=== PATIENT | male | born 1965 | race African-American/Black ===

== ENCOUNTER 2020-01-14 12:35 | Emergency (ER) | payer SELFPAY ==
[~2020-01-14] VITALS: Ht 175.3 cm; Wt 82.0 kg
[2020-01-14] MEDS ORDERED: HALOPERIDOL LACTATE 5MG/ML VIAL IM ONE (13:15)
[2020-01-14] MEDS ORDERED: LORAZEPAM 2MG/ML CPJ IM ONE (13:15)
[2020-01-14] MEDS ORDERED: DIPHENHYDRAMINE 50MG/ML VIAL IM ONE (13:15)
[2020-01-14] MEDS ORDERED: LIDOCAINE 1%/EPI 1:100,000 10 ML VIAL IJ ONE (14:15)
[2020-01-14] MEDS ORDERED: LIDOCAINE HCL/PF 1% 10 MG/ML 5ML VIAL IJ ONE (14:15)
[2020-01-14] MEDS ORDERED: LORAZEPAM 2MG/ML CPJ IV ONE (14:15)
[2020-01-14] MEDS ORDERED: TETANUS, DIPHTHERIA, PERTUSSIS VAC/PF 0.5ML (>7YR OLD) IM ONE (14:15)
[2020-01-14] MEDS ORDERED: KETOROLAC 30MG/ML VIAL IV ONE (14:15)
[2020-01-14] MEDS ORDERED: BACITRACIN ZINC OINT UDPKT TOP ONE (14:15)
[2020-01-14 14:50] LABS: HEMATOCRIT. 36.1 % (42.0-52.0); HEMOGLOBIN. 11.8 g/dL (14.0-18.0); MEAN CORPUSCULAR HEMOGLOBIN 30.5 pg (28.0-32.0); PLATELET 179 x1000/uL (130-400); RED BLOOD CELL COUNT 3.88 mill/uL (4.7-6.1); RED CELL DISTRIBUTION WIDTH 13.8 % (11.6-14.6)
[2020-01-14 14:52] LABS: CHLORIDE 118 mEq/L (98-107)
[2020-01-14 14:56] LABS: ETHANOL BLOOD < 10 mg/dL
[2020-01-14 15:05] LABS: CLARITY URINE CLEAR (CLEAR); COLOR URINE YELLOW (YELLOW); KETONES URINE NEGATIVE (NEGATIVE); LEUKOCYTE ESTERASE URINE NEGATIVE (NEGATIVE); NITRITE URINE NEGATIVE (NEGATIVE); OCCULT BLOOD URINE NEGATIVE (NEGATIVE); PROTEIN URINE 1+ (NEGATIVE); SPECIFIC GRAVITY URINE 1.023 (1.005-1.030)
[2020-01-14 15:22] LABS: *AMPHETAMINES SCREEN URINE PRESUMTIVE POSITIVE (NEGATIVE); *BARBITURATES SCREEN URINE NEGATIVE (NEGATIVE); *BENZODIAZEPINES SCREEN URINE NEGATIVE (NEGATIVE); *COCAINE SCREEN URINE PRESUMTIVE POSITIVE (NEGATIVE); CANNABINOID URINE SCREEN NEGATIVE (NEGATIVE); OPIATES URINE SCREEN NEGATIVE (NEGATIVE); PHENCYCLIDINE URINE SCREEN PRESUMTIVE POSITIVE (NEGATIVE)
[2020-01-14 15:24] LABS: METHADONE URINE SCREEN NEGATIVE (NEGATIVE)
[2020-01-14 15:36] LABS: PLATELET ESTIMATE NORMAL
[2020-01-14] MEDS ORDERED: DEXTROSE 50% WATER 50ML SYRINGE IV ONE (16:00)
[2020-01-14] MEDS ORDERED: SODIUM CHLORIDE 0.9% 1,000 ML IV ONE (18:15)
[2020-01-15 06:22] VITALS: BP 151/89
== END 2020-01-15 06:23 | disposition home or self-care (01) ==
LOC: EDBD 12:35 → ER 12:35
DX: F14.188 Cocaine abuse with other cocaine-induced disorder (principal); F15.188 Other stimulant abuse with other stimulant-induced disorder; F16.188 Hallucinogen abuse with other hallucinogen-induced disorder; S61.411A Laceration without foreign body of right hand, initial encounter; W26.8XXA Contact with other sharp object(s), not elsewhere classified, initial encounter; Y93.89 Activity, other specified; Y92.488 Other paved roadways as the place of occurrence of the external cause; E86.0 Dehydration; E16.2 Hypoglycemia, unspecified; R45.1 Restlessness and agitation; R03.0 Elevated blood-pressure reading, without diagnosis of hypertension; Z23 Encounter for immunization
CPT/HCPCS: 12004; 36415; 73130; 80053; 80305; 80320; 81003; 82962; 85025; 90471; 90715; 96361; 96372; 96374; 96375; 99285; J1200; J1630; J1885; J2060; J3490; J7030; G0480